=== PATIENT | male | born 1960 | race Two or more races ===

== ENCOUNTER 2023-07-23 13:58 | Emergency (ER) | payer OTHER ==
[~2023-07-23] VITALS: Ht 170.2 cm; Wt 87.1 kg
[2023-07-23 14:02] VITALS: TEMP 97.7
[2023-07-23 16:06] LABS: ALBUMIN 3.6 g/dL (3.4-5.0); CALCIUM, SERUM 8.6 mg/dL (8.5-10.1); CREATININE 0.8 mg/dL (0.6-1.3); TOTAL PROTEIN, SERUM 7.4 g/dL (6.4-8.2)
[2023-07-23 16:21] LABS: BASOPHILS % (AUTO) 0.4 % (0.0-2.0); EOSINOPHILS % (AUTO) 0.4 % (0.0-6.0); HEMATOCRIT 45 % (39-51); HEMOGLOBIN 15.7 g/dL (13.5-17.5); LYMPHOCYTES % (AUTO) 9.4 % (20.0-44.0); MEAN CORPUSCULAR HEMOGLOBIN 37 PG (26.0-33.0); MEAN CORPUSCULAR HGB CONC 35 g/dl (31.0-36.0); MEAN CORPUSCULAR VOLUME 108 fL (80-96); MONOCYTES # (AUTO) 0.7 K/uL (0.1-1.30); MONOCYTES % (AUTO) 6.5 % (2.0-12.0); NEUTROPHILS # (AUTO) 9.1 K/uL (1.8-8.9); NEUTROPHILS % (AUTO) 83.3 % (43.0-81.0); PLATELET COUNT (AUTO) 138 K/uL (150-450); RED BLOOD CELL COUNT(AUTO) 4.19 MIL/uL (4.5-6.0); RED CELL DISTRIBUTION WIDTH 14.5 % (11.5-15.0); WHITE BLOOD COUNT (AUTO) 10.9 K/uL (4.3-11.0)
[2023-07-23] MEDS ORDERED: IOHEXOL-300 100 ML VIAL IV ONE (16:23)
[2023-07-23] MEDS ORDERED: IV NS 0.9% 250 ML IV ONE (16:23)
[2023-07-23] MEDS ORDERED: CT SWABBABLE VALVE TRANS SET 1 EA INFUS.SET MC ONE (16:23)
[2023-07-23] MEDS: POTASSIUM CHLORIDE 20 MEQ TAB.PRT.SR PO ONE (18:28)
[2023-07-23] MEDS ORDERED: POTASSIUM CHLORIDE 20 MEQ TAB.PRT.SR PO ONE (18:28)
[2023-07-23 18:56] VITALS: BP 180/88; O2SAT 99
[2023-07-23 19:06] LABS: ANISOCYTOSIS 1+; BAND % (MANUAL) 2 % (0.0-5.0); LYMPHOCYTES % (MANUAL) 8 % (16-48); MONOCYTES % (MANUAL) 5 % (0-11.0); NEUTROPHILS % (MANUAL) 85 (42-76); PLATELET ESTIMATE DECREASED
== END 2023-07-23 18:57 | disposition left against medical advice (07) ==
LOC: ER 13:58
DX: S22.20XA Unspecified fracture of sternum, initial encounter for closed fracture (principal); S03.2XXA Dislocation of tooth, initial encounter; S09.8XXA Other specified injuries of head, initial encounter; S63.682A Other sprain of left thumb, initial encounter; S60.222A Contusion of left hand, initial encounter; I10 Essential (primary) hypertension; Z60.2 Problems related to living alone; V49.69XA Unspecified car occupant injured in collision with other motor vehicles in traffic accident, initial encounter; Y93.89 Activity, other specified; Y92.89 Other specified places as the place of occurrence of the external cause; Y99.8 Other external cause status
CPT/HCPCS: 99285; 72125; 93005; 73130; 71260; 70450; 70486; 85025; 83690; 36415; 80053; 84484; 85007; J7050; Q9967